=== PATIENT | female | born 1965 | race Caucasian/White ===

== ENCOUNTER 2016-06-11 04:28 | Emergency (ER) | payer BC, OTHER ==
--- NOTE | 2016-06-11 06:05 | ED ---
Edenilson Murray Billy, scribed for Kevin Feliz MD on 06/11/16 at 0548 . HPI Chest Pain - HPI Summary HPI Summary: Patient is a 50 y/o female coming to [facility] for evaluation of intermittent midsternal chest pain for the last 5 days. Severity 3/10. Patient states she will have approximately 7 episodes a day, and occasionally pain with inspiration. Pain radiates to her back. She denies any pain at this time in the ED. She has been taking 800mg ibuprofen for pain. She also reports fever (tmax 102F). - History of Current Complaint Chief Complaint: EDChestPainROMI Time Seen by Provider: 06/11/16 05:37 Hx Obtained From: Patient Onset/Duration: Started Days Ago, Still Present Timing: Intermittent Initial Severity: Moderate Current Severity: None Pain Intensity: 3 Pain Scale Used: 0-10 Numeric Chest Pain Location: Mid Sternal Chest Pain Radiates: Yes Chest Pain Radiates To:: Back Aggravating Factor(s): Deep Breaths - inspiration Alleviating Factor(s): Nothing Associated Signs and Symptoms: Positive: Chest Pain, Fever - Allergy/Home Medications Allergies/Adverse Reactions: Allergies Allergy/AdvReac Type Severity Reaction Status Date / Time Penicillins Allergy Intermediate Rash Verified 06/11/16 04:47 PMH/Surg Hx/FS Hx/Imm Hx Endocrine/Hematology History: Reports: Hx Diabetes - type 2 Denies: Hx Thyroid Disease Cardiovascular History: Reports: Hx Angina, Hx Hypercholesterolemia - borderline Denies: Hx Cardiac Arrest - strong family hx: pts father of mi at age 48., Hx Congestive Heart Failure - strong family hx: pts father chf & of heart disease, Hx Hypertension Respiratory History: Reports: Hx Asthma - mild Denies: Hx Chronic Obstructive Pulmonary Disease (COPD) GI History: Reports: Hx Gastroesophageal Reflux Disease, Other GI Disorders - guinal hernias & fatty liver disease Denies: Hx Ulcer Psychiatric History: Reports: Hx Depression - not current - Cancer History Cancer Type, Location and Year: jennifer ca & hysterectomy - Surgical History Surgery Procedure, Year, and Place: hysterectomy. gall bladder. c section X'S 2 - Immunization History Date of Tetanus Vaccine: unk Date of Influenza Vaccine: none Infectious Disease History: No Infectious Disease History: Denies: Hx Clostridium Difficile, Hx Hepatitis, Hx Human Immunodeficiency Virus (HIV), Hx of Known/Suspected MRSA, Hx Shingles, Hx Tuberculosis, Hx Known/ Suspected VRE, Hx Known/Suspected VRSA, History Other Infectious Disease, Traveled Outside the [place] in Last 30 Days - Family History Known Family History: Negative: Cardiac Disease, Hypertension, Diabetes - Social History Alcohol Use: None Substance Use Type: Reports: None Smoking Status (MU): Heavy Every Day Tobacco Smoker Type: Cigarettes Amount Used/How Often: 3/4 PPD Length of Time of Smoking/Using Tobacco: started about age 15 Have You Smoked in the Last Year: Yes Review of Systems Positive: Fever Positive: Chest Pain All Other Systems Reviewed And Are Negative: Yes Physical Exam Triage Information Reviewed: Yes Vital Signs On Initial Exam: Initial Vitals Temp Pulse Resp BP Pulse Ox 97.8 F 92 18 125/72 96 06/11/16 04:45 06/11/16 04:45 06/11/16 04:45 06/11/16 04:45 06/11/16 04:45 Vital Signs Reviewed: Yes Appearance: Positive: Well-Appearing, No Pain Distress Skin: Positive: Warm Head/Face: Positive: Normal Head/Face Inspection Eyes: Positive: ERIC ENT: Positive: Hearing grossly normal Neck: Positive: Supple, Nontender Respiratory/Lung Sounds: Positive: Breath Sounds Present Cardiovascular: Positive: RRR Abdomen Description: Positive: Nontender, Soft Bowel Sounds: Positive: Present Musculoskeletal: Positive: Strength/ROM Intact Neurological: Positive: Sensory/Motor Intact, Alert, Oriented to Person Place, Time - [place] Coma Scale Coma Scale Total: 15 Diagnostics - Vital Signs Vital Signs Temp Pulse Resp BP Pulse Ox 06/11/16 04:45 97.8 F 92 18 125/72 96 - Laboratory Result Diagrams: 06/11/16 06:45 06/11/16 06:45 Lab Statement: Any lab studies that have been ordered have been reviewed, and results considered in the medical decision making process. - EKG 0535 EKG Interpretation: NSR 85 bpm, no ST elevation Re-Evaluation - Re-Evaluation First Eval Re-Evaluation Time: 07:34 - results d/w pt Change: Improved Chest Pain Course/Dx - Diagnoses Provider Diagnoses: Chest pain Discharge - Discharge Plan Condition: Stable Disposition: HOME Patient Education Materials: Chest Pain (DC) The documentation as recorded by the Edenilson reno Billy accurately reflects the service I personally performed and the decisions made by Trini coleman David, MD.
[2016-06-11] MEDS ORDERED: Aspirin Low Dose CHEW TAB* 81 MG PO ONE (06:40)
[2016-06-11 07:13] LABS: Albumin 3.8 g/dL (3.2-5.2); BUN/Creatinine Ratio 12.9 (8-20); Calcium 9.4 mg/dL (8.6-10.3); EGFR African American 130.5 (>60); EGFR Non-African American 101.5 (>60); Globulin 3.3 g/dL (2-4); Potassium 4.1 mmol/L (3.5-5.0); Total Bilirubin 0.4 mg/dL (0.2-1.0); Total Protein 7.1 g/dL (6.4-8.9)
[2016-06-11 07:29] LABS: Hematocrit 41 % (35-47); Hemoglobin 13.5 g/dl (12.0-16.0); Mean Corpuscular HGB Conc 33 g/dl (31-36); Mean Corpuscular Hemoglobin 30 pg (27-31); Mean Corpuscular Volume 91 fL (80-97); Mean Platelet Volume 9 um3 (7.4-10.4); Red Blood Count 4.45 10^6/ul (4.0-5.4); Red Cell Distribution Width 13 % (10.5-15); White Blood Count 10.4 10^3/ul (3.5-10.8)
[2016-06-11 07:33] VITALS: BP 119/64
--- NOTE | 2016-06-11 10:04 | RAD ---
INDICATION: Left upper quadrant and midsternal pain radiating to the back COMPARISON: Chest x-ray dated May 19, 2015 TECHNIQUE: PA and lateral views of the chest were obtained. FINDINGS: The heart and mediastinum are normal in size and contour. A similar degree of mild to moderate peribronchial cuffing is seen compared to the previous chest x-ray. Otherwise the lungs are grossly clear. There is no evidence of large pleural effusion. Visualized bones are normal for the patient's age. There is no radiographic evidence of free air beneath the diaphragm IMPRESSION: MILD TO MODERATE PERIBRONCHIAL CUFFING COULD BE SEEN WITH BRONCHITIS OR OTHER INFLAMMATORY LUNG DISEASE.
== END 2016-06-11 07:54 | disposition home or self-care (01) ==
LOC: ED 04:28
DX: R07.9 Chest pain, unspecified (principal); R50.9 Fever, unspecified; F17.210 Nicotine dependence, cigarettes, uncomplicated
CPT/HCPCS: 36415; 71020; 80053; 83605; 84484; 85025; 93005; 99283

== ENCOUNTER 2016-11-21 07:03 | Emergency (ER) | payer BC ==
[2016-11-21 07:24] VITALS: BP 138/83
--- NOTE | 2016-11-21 10:20 | UC ---
Jamie Murray SooYoung, scribed for Nay Spaulding DO on 11/21/16 at 0726 . Respiratory Complaint HPI - HPI Summary HPI Summary: A 51 y/o F [place] [facility] [place]o cough ongoing for past two weeks, with productive cough for four days. No blood in phlegm. Associated sx: back ache, mild dyspnea, ear ache since resolved. Denies: wheezing, sore throat, sinus congestion, CP, abd pain, nausea, rash. Pert PMHx: asthma, bronchitis. Cough is keeping her up at night. She tried to see her PCP this week but was unable to due to car and insurance complications. Smoker. She is also interested in a Rx for Chantix. - History of Current Complaint Chief Complaint: UCRespiratory Stated Complaint: COUGH Time Seen by Provider: 11/21/16 07:18 Hx Obtained From: Patient Onset/Duration: Gradual Onset, Lasting Weeks - 2 weeks, Still Present Timing: Constant Severity Initially: Moderate Severity Currently: Moderate Pain Intensity: 0 Pain Scale Used: 0-10 Numeric Character: Sputum Description: - yellow Aggravating Factors: Recumbent Position Alleviating Factors: Upright Position Associated Signs And Symptoms: Positive: Dyspnea - mild, Wheezing, URI. Negative: Fever, Chills, Pleuritic Chest Pain, Hemoptysis, Dizziness, Nasal Congestion, Hoarseness, Sinus Discomfort - Allergies/Home Medications Allergies/Adverse Reactions: Allergies Allergy/AdvReac Type Severity Reaction Status Date / Time Penicillins Allergy Intermediate Rash Verified 11/21/16 07:14 PMH/Surg Hx/FS Hx/Imm Hx Previously Healthy: No Endocrine History: Diabetes - pt denies on 11/21/16 Cardiovascular History: Other Other Cardiovascular History: angina Respiratory History: Asthma, Bronchitis GI/ History: Gastroesophageal Reflux - Surgical History Surgical History: Yes Surgery Procedure, Year, and Place: hysterectomy. gall bladder. c section X'S 2 - Family History Known Family History: Positive: Cardiac Disease Negative: Hypertension, Diabetes - Social History Occupation: Employed Full-time Lives: With Family Alcohol Use: None Substance Use Type: None Smoking Status (MU): Heavy Every Day Tobacco Smoker Type: Cigarettes Amount Used/How Often: 3/4 PPD Length of Time of Smoking/Using Tobacco: started about age 15 Have You Smoked in the Last Year: Yes Household Exposure Type: Cigarettes Cessation Counseling: Patient Advised to Stop - Immunization History Most Recent Influenza Vaccination: NOT IN Most Recent Tetanus Shot: maybe 2006 Review of Systems Constitutional: Negative Skin: Negative Eyes: Negative ENT: Ear Ache - since resolved Respiratory: Cough, Other - pos: mild dyspnea Cardiovascular: Negative Gastrointestinal: Negative Genitourinary: Negative Motor: Negative Neurovascular: Negative Musculoskeletal: Other: - pos: mild back ache with cough Neurological: Negative Psychological: Negative All Other Systems Reviewed And Are Negative: Yes Physical Exam Triage Information Reviewed: Yes Appearance: Well-Appearing, No Pain Distress, Well-Nourished Vital Signs: Initial Vital Signs Temp 97.6 F 11/21/16 07:11 Pulse 77 11/21/16 07:11 Resp 20 11/21/16 07:11 BP 138/83 11/21/16 07:11 Pulse Ox 98 11/21/16 07:11 Vital Signs Reviewed: Yes Eyes: Positive: Conjunctiva Clear. Negative: Discharge ENT: Positive: Hearing grossly normal. Negative: Muffled/hoarse voice Neck exam: Normal Neck: Positive: Supple Respiratory: Positive: No respiratory distress, No accessory muscle use, Expiration - prolonged expiration at the bases, Other: - Tight scattered wheezes Cardiovascular: Positive: RRR, No Murmur Musculoskeletal Exam: Normal Neurological: Positive: Alert, Muscle Tone Normal Psychological Exam: Normal Psychological: Positive: Age Appropriate Behavior Skin Exam: Normal - warm, dry, nml color UC Diagnostic Evaluation - Laboratory O2 Sat by Pulse Oximetry: 98 Respiratory Course/Dx - Course Course Of Treatment: The patient has been encouraged to quit smoking. Medications reviewed this visit. High blood pressure noted. - Differential Dx/Diagnosis Differential Diagnosis/HQI/PQRI: Asthma, Bronchitis, Lower Resp Infection, Sinusitis Provider Diagnoses: 1. Acute bronchitis. 2. Elevated blood pressure without diagnosis of hypertension. Discharge - Discharge Plan Condition: Stable Disposition: HOME Prescriptions: Azithromycin TAB* [Zithromax TAB (Z-MARQUISE) 250 mg #6 tabs] 0 mg PO .SEE INSTRUCTIONS #6 tab guaiFENesin ER TAB [Mucinex*] 600 mg PO BID PRN #1 box PRN Reason: Cough guaiFENesin/CODIEN 100MG-10MG* [Robitussin AC 100Mg-10Mg*] 5 - 10 ml PO BEDTIME PRN #100 udc MDD 10ml PRN Reason: Cough predniSONE TAB* [Deltasone TAB*] 40 mg PO DAILY #10 tab Patient Education Materials: How to Stop Smoking (ED), Acute Bronchitis (ED) Referrals: Swati Moreno MD [Primary Care Provider] - Additional Instructions: INHALED BRONCHODILATORS: You have received a prescription for an inhaled bronchodilator -- a medication which stimulates the airways in the lung to dilate. This improves the flow of air in asthma, bronchitis, and emphysema. These medicines have some similarity to adrenaline, and can cause similar side effects: shakiness, racing heart, and a sense of nervousness. These side effects decrease with time. Contact your doctor if these side effects are severe. Do not over-use the medicine. Too-frequent use of the inhaler may make it ineffective. Call your doctor if the inhaler is not controlling your symptoms at the prescribed doses. COUGH-SUPPRESSANT & EXPECTORANT MEDICATION: You are to use a cough medication as needed for relief of symptoms. This medicine is a combination of an expectorant (to make the mucous thinner and more easily "coughed up") and a cough suppressant (to reduce the frequency of coughing). The cough-suppressant medicine is related to narcotics. You may experience mild nausea and sleepiness. Some patients who are very sensitive to narcotics may have stomach pain from this medicine. Taking the medicine with food reduces these side effects. Do not drive or work with machinery until you know how this medicine affects you. The expectorant should have no side effects. Iodine-containing expectorants (such as organidin) should not be taken by persons with active thyroid disease unless approved by your doctor. Call the doctor if you develop shortness of breath, hives, rash, itching, lightheadedness, or severe nausea and vomiting. EXPECTORANT MEDICATION: WE SENT IN A SCRIPT FOR MUCINEX SO THAT IT IS EASIER FOR YOU TO PICK THE RIGHT MED AT THE PHARMACY. HOWEVER, YOU CAN ALSO GO TO THE NATURAL FOOD STORE AND BUY PLAIN GUAIFENESIN WITHOU BINDERS OR FILLERS. An expectorant medicine has been prescribed. This type of drug makes mucous thinner, helping the sinuses, nose, and bronchial tubes to remain free of pus and mucous. Expectorants make a cough less severe and more comfortable, and help infected sinuses drain. In general, antihistamines defeat the purpose of the expectorant by making mucous thicker. They should be avoided unless specifically recommended by your physician. CORTICOSTEROID MEDICATION: You have been given a medicine of the cortisone class. This medication is used to control inflammation or allergy. It is usually only given for a short period of time, until the acute process subsides. There are usually no side effects from short-term use of cortisone-like medications. Some persons feel an increased sense of well-being and are not sleepy at bedtime. Long-term use of cortisone medications is best avoided, unless required for a severe condition. If your condition does not remit, or relapses after the course of corticosteroid medication, you should consult your physician. Contact the physician if you develop lightheadedness, black or tarry stools , swelling of the legs, or significant rapid change in weight. AZITHROMYCIN: Azithromycin (Zithromax) is a broad spectrum antibiotic in the same class as erythromycin. It can treat a variety of bacterial infections, but is most frequently used for respiratory infections. Azithromycin is extremely long-lasting. It accumulates in body tissues and continues to kill bacteria for many days. In order to improve absorption, Azithromycin should be taken at least one hour before or two hours after a meal. It does not have the same strong tendency to upset the stomach as erythromycin and is usually very well tolerated. Patients who have had a rash or other true allergic reactions to erythromycin should not take this medication. Call if you develop gastrointestinal distress, severe diarrhea, rash, hives, itching, or shortness of breath. ANYTIME YOU TAKE AN ANTIBIOTIC, IT IS IMPORTANT TO REPLENISH THE BODY'S SUPPLY OF "GOOD BACTERIA." YOU CAN GET GOOD BACTERIA FROM HIGH QUALITY CULTURED FOODS SUCH LOCAL YOGURT, SOUR KRAUT, ABEBE NASH, NATURALLY FERMENTED PICKLES AND PROBIOTIC DRINKS. YOU CAN ALSO GET GOOD BACTERIA FROM A PROBIOTIC SUPPLEMENT. Your blood pressure was elevated at this visit: 138/83. That does not mean you have hypertension, it is probably due to your current condition. Please follow up with your primary care provider in 1 day to 4 weeks. Return to Urgent Care if you have any new or worsening symptoms. The documentation as recorded by the Jamie reno SooYoung accurately reflects the service I personally performed and the decisions made by , Nay Spaulding DO.
== END 2016-11-21 07:45 | disposition home or self-care (01) ==
LOC: UCEAST 07:03
DX: J20.9 Acute bronchitis, unspecified (principal); R03.0 Elevated blood-pressure reading, without diagnosis of hypertension; I20.9 Angina pectoris, unspecified; K21.9 Gastro-esophageal reflux disease without esophagitis; Z88.0 Allergy status to penicillin; F17.210 Nicotine dependence, cigarettes, uncomplicated
CPT/HCPCS: 99212; G0463

== ENCOUNTER 2018-02-06 15:01 | Emergency (ER) | payer BC ==
[2018-02-06 15:33] VITALS: BP 144/70
--- NOTE | 2018-02-06 15:53 | UC ---
Back Pain HPI - HPI Summary HPI Summary: 52-year-old woman here today with a chief complaint of low back pain. Pains been going on for about a week. It started after being on her feet most the day at work. No known specific evidence of trauma. Pain started more upper lumbar area and it spread down throughout the lumbar area and also radiates now into the bilateral buttocks and hips. Occasionally there is further extension of radiation down the left leg which is intermittent. No weakness or numbness no loss of bowel or bladder control. No abdominal pain nausea or vomiting. Pain gets worse with twisting turning or bending. Eating does not make the pain worse. Bowels and bladder behaving normally. Patient does have a history of GERD she does not have any epigastric pain. She has been taking ibuprofen 800 mg 3 times a day. She also has had some Flexeril for prior back pain episode. The Flexeril helps her sleep at night however when she lays on her side the pain is severe enough that she ends up waking up. - History of Current Complaint Chief Complaint: UCBackPain Stated Complaint: BACK/BILATERAL HIP PAIN Time Seen by Provider: 02/06/18 15:32 Pain Intensity: 6 - Allergies/Home Medications Allergies/Adverse Reactions: Allergies Allergy/AdvReac Type Severity Reaction Status Date / Time Penicillins Allergy Intermediate Rash Verified 02/06/18 15:33 Home Medications: Home Medications ALPRAZolam TAB* [Xanax TAB*] 0.5 mg PO TID PRN 02/06/18 [History Confirmed 02/06] busPIRone TAB* [Buspar TAB*] 10 mg PO BID PRN 02/06/18 [History Confirmed ] tiZANidine TAB* [Zanaflex TAB*] 2 mg PO BEDTIME 02/06/18 [History Confirmed ] PMH/Surg Hx/FS Hx/Imm Hx Respiratory History: Asthma - Surgical History Surgical History: Yes Surgery Procedure, Year, and Place: hysterectomy. gall bladder. c section X'S 2 - Family History Known Family History: Positive: None, Cardiac Disease Negative: Hypertension, Diabetes - Social History Alcohol Use: None Substance Use Type: None Smoking Status (MU): Heavy Every Day Tobacco Smoker Type: Cigarettes Amount Used/How Often: 3/4 PPD Length of Time of Smoking/Using Tobacco: started about age 15 Have You Smoked in the Last Year: Yes Household Exposure Type: Cigarettes - Immunization History Most Recent Influenza Vaccination: NOT IN Most Recent Tetanus Shot: maybe 2006 Review of Systems All Other Systems Reviewed And Are Negative: Yes Constitutional: Positive: Negative Skin: Positive: Negative Eyes: Positive: Negative ENT: Positive: Negative Respiratory: Positive: Negative Cardiovascular: Positive: Negative Gastrointestinal: Positive: Negative. Negative: Abdominal Pain Genitourinary: Positive: Negative. Negative: Dysuria, Hematuria, Frequency, Urgency Motor: Positive: Negative. Negative: Weakness Neurovascular: Positive: Negative. Negative: Decreased Sensation Musculoskeletal: Positive: Other: - see hpi Neurological: Positive: Negative Psychological: Positive: Negative Is Patient Immunocompromised?: No Physical Exam Triage Information Reviewed: Yes Appearance: Well-Appearing, Well-Nourished, Pain Distress - with movement Mild Vital Signs: Initial Vital Signs Temp 96.8 F 02/06/18 15:28 Pulse 91 02/06/18 15:28 Resp 22 02/06/18 15:28 BP 144/70 02/06/18 15:28 Pulse Ox 94 02/06/18 15:28 Vital Signs Reviewed: Yes Eye Exam: Normal Eyes: Positive: Conjunctiva Clear Neck: Positive: Supple Respiratory: Positive: No respiratory distress Abdomen Description: Positive: Nontender, Soft, CVA Tenderness (R), CVA Tenderness (L) Bowel Sounds: Positive: Present Musculoskeletal: Positive: Other: - Patient is tender to palpation in the lumbar region to include the bilateral paraspinous muscles. There is some tenderness to palpation going down into both buttocks. Legs a full range of motion no sensation deficit normal strength 5 out of 5. Neurological Exam: Normal Neurological: Positive: Alert, Muscle Tone Normal Psychological Exam: Normal Psychological: Positive: Age Appropriate Behavior Skin Exam: Normal Back Pain Course/Dx - Course Course Of Treatment: Patient has no abdominal pain. Pain is the back is worse with twisting turning and bending. Is no neurologic deficit. At this time we' ll treat with ibuprofen and Flexeril and hydrocodone and also back stretches and exercises and follow-up with primary care doctor. She has a follow-up scheduled with her primary care doctor on February 28, 2018. I let her know that if she had any excessive pain weakness or numbness or difficulty controlling urine or bowels that she needs to get reevaluated right away. - Differential Dx/Diagnosis Provider Diagnoses: LOW BACK PAIN Discharge - Sign-Out/Discharge Documenting (check all that apply): Patient Departure All imaging exams completed and their final reports reviewed: No Studies - Discharge Plan Condition: Stable Disposition: HOME Prescriptions: Cyclobenzaprine TAB* [Flexeril 10 MG TAB*] 10 mg PO TID PRN #20 tab MDD 3 PRN Reason: Pain HYDROcodone/ACETAMIN 5-325 MG* [[place] 5-325 TAB*] 1 tab PO Q4H PRN #30 tab MDD 6 PRN Reason: Pain Patient Education Materials: Acute Low Back Pain (ED), Lower Back Exercises (ED ) Referrals: [facility] [place] [place] [Outside] Additional Instructions: FOLLOW UP WITH YOUR DOCTOR ON February, SCHEDULED. GET RECHECKED FOR ANY WORSENING OF YOUR CONDITION; PAIN, WEAKNESS, NUMBNESS, DIFFICULTY CONTROLLING BOWEL OR BLADDER OR QUESTIONS OR CONCERNS. - Billing Disposition and Condition Condition: STABLE Disposition: Home
== END 2018-02-06 16:05 | disposition home or self-care (01) ==
LOC: UCCORT 15:01
DX: M54.5 Low back pain (principal); J45.909 Unspecified asthma, uncomplicated; F17.210 Nicotine dependence, cigarettes, uncomplicated; Z88.0 Allergy status to penicillin
CPT/HCPCS: 99212; G0463

== ENCOUNTER 2018-08-05 12:23 | Emergency (ER) | payer BC ==
[2018-08-05] MEDS ORDERED: Albuterol/Ipratropium NEB.SOL* Albuterol 2.5 MG/Ipratropium 0.5 MG 3 ML INH ONE (12:44)
[2018-08-05] MEDS ORDERED: predniSONE TAB* 20 MG PO ONE (12:44)
[2018-08-05 13:28] VITALS: BP 136/70
--- NOTE | 2018-08-05 13:40 | UC ---
Shortness of Breath HPI - HPI Summary HPI Summary: 52-year-old female with history of COPD presents with one-day history of worsening dyspnea with exertion. She reports some cold-like symptoms including stuffy nose, mild sore throat, and a nonproductive cough for the last 3 days. She continues to smoke approximately 1 pack per day. Family history is significant for father with ME at age of 48. Denies fever, chills, chest pain, palpitations, weakness, dizziness, diaphoresis, nausea, or vomiting. - History of Current Complaint Chief Complaint: UCRespiratory Stated Complaint: CHEST CONGESTION, COUGH (HX COPD, ASTHMA) Time Seen by Provider: 08/05/18 12:43 Hx Obtained From: Patient - Allergy/Home Medications Allergies/Adverse Reactions: Allergies Allergy/AdvReac Type Severity Reaction Status Date / Time Penicillins Allergy Intermediate Rash Verified 08/05/18 12:38 Home Medications: Home Medications D-Methorphan/PE/Acetaminophen [Gnp Day Time Cold/Flu Rel] 1 liq PO BID PRN 08/05 [History Confirmed 08/05/18] PMH/Surg Hx/FS Hx/Imm Hx Respiratory History: COPD Psychological History: Depression - Surgical History Surgical History: Yes Surgery Procedure, Year, and Place: hysterectomy. gall bladder. c section X'S 2 - Family History Known Family History: Positive: None, Cardiac Disease - Father ME age 48. Negative: Hypertension, Diabetes - Social History Occupation: Employed Full-time Lives: With Family Alcohol Use: None Substance Use Type: None Smoking Status (MU): Heavy Every Day Tobacco Smoker Type: Cigarettes Amount Used/How Often: 3/4- 1 PPD Length of Time of Smoking/Using Tobacco: started about age 15 Have You Smoked in the Last Year: Yes Household Exposure Type: Cigarettes - Immunization History Most Recent Influenza Vaccination: NOT IN Most Recent Tetanus Shot: maybe 2006 Review of Systems All Other Systems Reviewed And Are Negative: Yes Constitutional: Negative: Fever, Chills ENT: Positive: Sore Throat, Nasal Discharge, Sinus Congestion. Negative: Ear Ache, Sinus Pain/Tenderness Respiratory: Positive: Shortness Of Breath, Cough Cardiovascular: Negative: Palpitations, Chest Pain Gastrointestinal: Negative: Abdominal Pain, Vomiting, Diarrhea, Nausea Genitourinary: Positive: Negative Musculoskeletal: Positive: Negative Neurological: Positive: Negative Is Patient Immunocompromised?: No Physical Exam - Summary Physical Exam Summary: GENERAL APPEARANCE: Well developed, well nourished, alert and cooperative, and appears to be in no acute distress. EYES: Conjunctiva clear. No drainage. EARS: External auditory canals and tympanic membranes clear, hearing grossly intact. NOSE: Mild nasal congestion. No nasal discharge. THROAT: Pharyngeal cobblestoning. No tonsilar inflammation, swelling, exudate, or lesions. Uvula midline. NECK: Neck supple, non-tender without lymphadenopathy. CARDIAC: Normal S1 and S2. No S3, S4 or murmurs. Rhythm is regular. There is no peripheral edema, cyanosis or pallor. Extremities are warm and well perfused. Capillary refill is less than 2 seconds. Peripheral pulses intact. LUNGS: Decreased bilateral breathsounds with diffuse wheezes. No rales or rhonchi noted. ABDOMEN: Positive bowel sounds. Soft, nondistended, nontender. No guarding or rebound. No masses or hepatosplenomegally. MUSKULOSKELETAL: ROM intact to all extremities. No joint erythema or tenderness. Normal muscular development. Normal gait. SKIN: Skin normal color, texture and turgor with no lesions or eruptions. Triage Information Reviewed: Yes Vital Signs: Initial Vital Signs Temp 97.5 F 08/05/18 12:30 Pulse 96 08/05/18 12:30 Resp 20 08/05/18 12:30 BP 158/88 08/05/18 12:30 Pulse Ox 91 08/05/18 12:30 Vital Signs Reviewed: Yes Diagnostics - EKG Cardiac Rate: NL Cardiac Rhythm: Sinus: Normal Ectopy: None ST Segment: Normal Summary of EKG Findings: NSR with non-specific T-wave abnormalities in anterior leads. No ectopy or ADAM noted. when compared to EKG from 06/11/2016 the T-wave inversions in leads V1 and V2 are unchanged however there is worsening T-wave inversion in leads V3 and V4. Re-Evaluation - Re-Evaluation First Eval Re-Evaluation Time: 13:30 Change: Improved Comment: Patient reports breathing is a little easier. She continues to have diffuse bilateral wheezing but improved air exchange. An ambulatory pulse oximetry was performed and patient desaturated to 85-86% with increase in HR to 111 and patient had obvious increase in work of breathing. Shortness of Breath Dx - Course Course Of Treatment: 52-year-old female with history of COPD presents with one-day history of worsening dyspnea with exertion. She reports some cold-like symptoms including stuffy nose, mild sore throat, and a nonproductive cough for the last 3 days. She continues to smoke approximately 1 pack per day. Family history is significant for father with ME at age of 48. Denies fever, chills, chest pain, palpitations, weakness, dizziness, diaphoresis, nausea, or vomiting. At triage patient was afebrile, hypertensive with a pulse ox of 91% at rest otherwise vital signs were stable. On exam she was noted to have some mild nasal congestion, pharyngeal cobblestoning, and decreased bilateral breath sounds with diffuse wheezing. A 12-lead EKG was obtained and showed normal sinus rhythm with some nonspecific T-wave abnormalities including T-wave inversions in V1 through V4 without ectopy or ST elevations. Patient was given a DuoNeb and prednisone 60 mg PO. Following her DuoNeb patient reported some improvement in her breathing. She continued to have diffuse wheezes however there was some improvement in her air exchange. Post nebulizer vital signs were unchanged from previous however a ambulatory pulse oximetry was performed and the patient desaturated to 85-86% with an increase in her heart rate to 111 with obvious increased work of breathing. I discussed with the patient that with her significant family history, EKG changes, and desaturation with minimal exertion I am recommending that she go to the emergency room for further evaluation as I cannot fully exclude cardiac problems. Patient is agreeable to this and is electing to go by private vehicle with her driving. I will send him prescriptions for a course of azithromycin, prednisone 50 mg daily 4 more days, and provided her with some guaifenesin-codeine to use as needed for cough should she have a negative workup at the emergency room. I have encouraged her to follow up with her primary care provider in one to 2 days even if she has a negative workup at the emergency room. Patient is agreeable to this plan of care. - Differential Dx/Diagnosis Differential Diagnosis/HQI/PQRI: Bronchitis, COPD Exacerbation, ME, Pneumonia Provider Diagnosis: Dyspnea on exertion - Physician Notification/Consults Discussed Patient Care With: Danielle Loredo NP - [facility] ED Time Discussed With Above Provider: 13:52 Instructed by Provider To: MD Will See In ED Discharge - Sign-Out/Discharge Documenting (check all that apply): Patient Departure All imaging exams completed and their final reports reviewed: No Studies - Discharge Plan Condition: Stable Disposition: HOME Prescriptions: Azithromyxin MARQUISE (NF) [Z-Marquise (Zithromax) 250 mg tabs #6] 2 tab PO .TODAY, THEN 1 DAILY #6 tab Codeine Phosphate/Guaifenesin [Codeine-Guaifen 10-100 mg/5 ml] 10 ml PO Q4HR PRN #240 liquid MDD 60 ml PRN Reason: Cough predniSONE TAB* [Deltasone TAB*] 50 mg PO DAILY #4 tab Patient Education Materials: COPD (Chronic Obstructive Pulmonary Disease) (ED) , Dyspnea (ED) Referrals: No Primary Care Phys,NOPCP [Primary Care Provider] - Additional Instructions: I suspect that your symptoms are likely related to an exacerbation of your COPD however there were some non-specific changes in your EKG when compared to previous therefore I cannot say with full certainty that your symptoms are not heart related. I am recommending that you go to the emergency room from here for further evaluation. I will send prescriptions into the pharmacy to treat your COPD exacerbation if your emergency room evaluation is negative. Start azithormycin 2 tabs today then 1 tab a day for for next 4 days. Take prednisone 50 mg daily for 4 days starting tomorrow. We gave you a dose in the clinic today. Use guaifenesin-codeine 100mg-10 mg 10 ml every 4 hours as needed for cough. Take no more than 60 ml per day. This may cause drowsiness and/or upset stomach. Continue using your inhalers/nebulizer as directed. Follow up with your primary care provider within 2 days for recheck of symptoms. - Billing Disposition and Condition Condition: STABLE Disposition: Home
== END 2018-08-05 13:55 | disposition home or self-care (01) ==
LOC: UCCORT 12:23
DX: R06.09 Other forms of dyspnea (principal); R09.89 Other specified symptoms and signs involving the circulatory and respiratory systems; J02.9 Acute pharyngitis, unspecified; R05 Cough; F17.210 Nicotine dependence, cigarettes, uncomplicated; Z88.0 Allergy status to penicillin; J44.9 Chronic obstructive pulmonary disease, unspecified
CPT/HCPCS: 93005; 99212; A9270-GY; G0463; J7512